=== PATIENT | female | born 1980 | race Two or more races ===

== ENCOUNTER 2017-06-28 17:49 | Emergency (ER) | payer OTHER ==
[~2017-06-28] VITALS: Ht 157.5 cm; Wt 61.2 kg
[~2017-06-28 17:49] MED LIST: ALBUTEROL SULF8.5 GM INH; AZITHROMYCIN250 MG ORAL; CYCLOBENZAPRINE10 MG ORAL; IBUPROFEN200 M1 PO; IBUPROFEN600 MG ORAL; LEVAQUIN500 MG ORAL; NAPROXEN375 MG ORAL; NKM; NORCO 5-325 TA1 EACH ORAL; PREDNISONE20 MG ORAL; PROMETH-CODEIN 65 ML PO; SINUS 12-HOUR120 MG PO; VITAMIN D50000 UNI1 PO; ZOFRAN ODT4 MG ORAL
[2017-06-28 17:53] VITALS: BP 101/66
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
[2017-06-28] MEDS ORDERED: IBUPROFEN600 MG ORAL (19:06)
[2017-06-28 19:30] VITALS: BP 101/66
--- NOTE | 2017-06-29 12:00 | Diagnostic Imaging Report ---
Indication: pain Findings: 3 views of the right hand were obtained. Normal bony mineralization and alignment are demonstrated. No acute fractures, erosions, or periosteal reaction are seen. Soft tissues are unremarkable. Impression: No acute findings.
== END 2017-06-28 20:00 | disposition home or self-care (01) ==
LOC: EMR 19:59
DX: M77.9 Enthesopathy, unspecified (principal)
CPT/HCPCS: 99283